=== PATIENT | male | born 1975 | race Caucasian/White ===

== ENCOUNTER 2023-10-23 13:04 | Observation (INO) | payer OTHER, SELFPAY ==
--- NOTE | ~2023-10-23 | CT_ITS ---
CT of the Abdomen and Pelvis: Indication: Left lower quadrant pain Technique: 2.5 mm axial scans were obtained through the abdomen and pelvis following intravenous adm inistration of 100 cc of Omnipaque 350. Dose reduction technique was used on this scan by utilizing a utomated exposure control and iterative reconstruction technique. The dose-length product (DLP) was 9 96.17 mGy-cm. Findings: Scans through the lung bases are unremarkable. The liver, spleen, pancreas, gallbladder, adrenals and kidneys are within normal limits. No evidence of aortic aneurysm. No lymphadenopathy. No bowel obstruction or bowel wall thickening. There is no evidence to suggest acute appendicitis. Images through the pelvis were performed. Urinary bladder unremarkable. Fat-containing left inguinal hernia present. No pelvic mass evident. Prostate gland mildly enlarged. No ascites. Bilateral L5 pars interarticularis defects are present, with 11 mm anterolisthesis of L5 over S1. Impression: Moderate fat-containing left inguinal hernia. Reviewed, dictated and finalized at [facility]. Impression: Moderate fat-containing left inguinal hernia.
[2023-10-23 13:05] VITALS: BP 178/94; PULSE 73; RESP 18; TEMP 36.5; O2SAT 100
--- NOTE | 2023-10-23 13:20 | ED.ABDPAIN ---
HPI - Abdominal Pain General Chief Complaint: Abdominal Pain Stated Complaint: lower abd pain Time Seen by Provider: 10/23/23 13:19 Source: patient Mode of arrival: ambulatory Limitations: no limitations History of Present Illness HPI narrative: Sudden onset left lower quadrant pain, squeezing started 1 hour prior to arrival to the emergency room. Associated with nausea and vomiting once. He denies any fever or chills or radiation of pain or history of abdominal surgery Related Data Allergies Allergy/AdvReac Type Severity Reaction Status Date / Time No Known Allergies Allergy Verified 10/23/23 13:15 Review of Systems Review of Systems: All systems reviewed & are unremarkable except as noted in HPI and below Exam Narrative: General appearance: Well-developed, well-nourished Skin: Normal color Head: Normocephalic, nontraumatic Eyes: Clear conjunctiva ENT: Oropharynx normal, ears normal, nose normal Neck: Supple, nontender Chest and respiratory: Airway patent, no respiratory distress, no accessory muscle use Heart: Regular rate/rhythm Abdomen: Soft, slight tenderness left flank and left lower quadrant, slight swelling at the left lower quadrant, nontender, soft. No guarding or rebound, no organomegaly, quiet bowel sounds Vascular: Normal peripheral pulses, normal capillary refill. Musculoskeletal: Normal range of motion, nontender back Neurologic: Alert and oriented ?3, OFFICE SUPPORT is normal as tested, no gross motor deficit Course Vital Signs Vital signs: Vital Signs Temperature 36.5 C 10/23/23 13:05 Pulse Rate 73 10/23/23 13:05 Respiratory Rate 18 10/23/23 13:05 Blood Pressure 178/94 H 10/23/23 13:05 Pulse Oximetry 100 10/23/23 13:05 Oxygen Delivery Room Air 10/23/23 13:05 Temperature 36.5 C 10/23/23 13:05 Pulse Rate 73 10/23/23 13:05 Respiratory Rate 18 10/23/23 13:05 Blood Pressure 178/94 H 10/23/23 13:05 Pulse Oximetry 100 10/23/23 13:05 Oxygen Delivery Room Air 10/23/23 13:05 MDM - Abdominal Pain MDM Narrative Medical decision making narrative: Patient came with sudden onset of pain at the left lower quadrant Vital signs showed blood pressure of 178/94 Physical examination showed slight tenderness left lower quadrant and left flank area, slight soft bulging left lower quadrant which is nontender Differential diagnosis include kidney stone, urinary tract infection, diverticulitis, constipation, colitis, non strangulated inguinal hernia Blood workup today showed normal WBC, creatinine of 1.9 compared to 1.2 on September 26, 2023 Urinalysis showed no evidence of urinary tract infection CT scan of the abdomen and pelvis with IV contrast showed left inguinal hernia containing fat Because of the elevated creatinine patient will be admitted to the hospitalist for hydration with diagnosis of BENJAMIN Differential Diagnosis Differential diagnosis: Likely other (As above) Medical Records Attestation: I reviewed the patient's medical records. Lab Data Attestation: I reviewed the patient's lab results. 10/23/23 13:22 10/23/23 13:32 Labs: Lab Results 10/23/23 10/23/23 10/23/23 Range/Units 13:22 13:32 14:07 WBC 6.9 (4.5-10.0) K/mm3 RBC 4.93 (4.6-6.20) M/mm3 Hgb 14.9 (14.0-18.0) g/dL Hct 45.0 (42.0-52.0) % MCV 91.3 (80-100) fl MCH 30.2 (26-34) pg MCHC 33.1 (32-36) g/dl RDW 12.6 (11.5-14.5) % Plt Count 245 (150-375) k/mm3 MPV 9.9 (7.4-10.4) fl Immature Gran % (Auto) 0.3 (0-0.5) % Neut % (Auto) 55.9 (45.5-73.1) % Lymph % (Auto) 33.7 (18.3-44.2) % [place] % (Auto) 7.1 (2.6-8.5) % Eos % (Auto) 2.3 (0-4
[2023-10-23 13:30] LABS: Basophils Absolute Auto 0.1 K/mm3 (0.0-0.1); Basophils Percent Auto 0.7 % (0.2-1.2); Eosinophils Absolute Auto 0.2 K/mm3 (0-0.3); Eosinophils Percent Auto 2.3 % (0-4.4); Hemoglobin 14.9 g/dL (14.0-18.0); Immature Granulocyte Absolute 0.02 K/mm3 (0.00-0.031); Immature Granulocyte Percent A 0.3 % (0-0.5); Lymphocytes Absolute Auto 2.32 K/mm3 (0.9-3.2); Lymphocytes Percent Auto 33.7 % (18.3-44.2); Mean Corpuscular HGB Conc 33.1 g/dl (32-36); Mean Corpuscular Hemoglobin 30.2 pg (26-34); Mean Corpuscular Volume 91.3 fl (80-100); Mean Platelet Volume 9.9 fl (7.4-10.4); Monocytes Absolute Auto 0.5 K/mm3 (0.1-0.6); Monocytes Percent Auto 7.1 % (2.6-8.5); Neutrophils Absolute Auto 3.9 K/mm3 (1.3-6.7); Neutrophils Percent Auto 55.9 % (45.5-73.1); Platelet Count Result 245 k/mm3 (150-375); Red Blood Count 4.93 M/mm3 (4.6-6.20); Red Cell Distribution Width 12.6 % (11.5-14.5); White Blood Count 6.9 K/mm3 (4.5-10.0)
[2023-10-23 13:34] LABS: Estimated CRCL calculation 50 ml/min; Estimated Glomerular Filt Rate 38
[2023-10-23 13:41] LABS: Lactic Acid Reflex 1.8 mmol/L (0.7-2.0)
[2023-10-23 13:42] LABS: Alanine Aminotransferase 43 U/L (6-50); Albumin Level 4.9 g/dL (3.5-5.1); Alkaline Phosphatase 61 U/L (38-126); Anion Gap 13 mmol/L (4-12); Aspartate Amino Transferase 35 U/L (17-59); Bilirubin,Total 0.5 mg/dL (0.2-1.3); Blood Urea Nitrogen 18 mg/dL (9-20); Calcium 9.5 mg/dL (8.4-10.2); Carbon Dioxide 26 mmol/L (22-30); Chloride 102 mmol/L (98-107); Estimated CRCL calculation 53 ml/min; Estimated Glomerular Filt Rate 40; Glucose 190 mg/dL (65-110); Lipase 364 U/L (23-300); Potassium 3.8 mmol/L (3.4-5.0); Sodium 141 mmol/L (137-145)
[2023-10-23] MEDS: ONDANSETRON INJ 4 MG/2 ML VIAL IV PUSH (13:43)
[2023-10-23] MEDS: SODIUM CHLORIDE 0.9% IV 1,000 ML 999 ML IV CONT (13:44)
[2023-10-23] MEDS: MORPHINE SULFATE (*CRX) 4 MG/ML INJ IV PUSH (13:44)
[2023-10-23 14:17] LABS: Add Urine Microscopic? YES; Appearance Urine Clear (Clear); Bacteria Urine None Seen /hpf; Bilirubin Urine Negative (Negative); Blood Urine 1+ (Negative); Color Urine Yellow (Yellow); Glucose Urine UA 3+ mg/dL (Negative); Ketones Urine Negative (Negative); Leukocyte Esterase Ur Negative LEU/UL (Negative); Nitrate Urine Negative (Negative); Non Pathogenic Casts 0-2; Protein Urine Negative (Negative); Specific Grav Ur > 1.045 (1.001-1.035); Squamous Epithelial Cell Urine None Seen /hpf (Few); Urobilinogen Urine 0.2 mg/dL (<2.0); WBC Urine 0-5 /hpf (0-3); pH Urine 5.5 (5.0-9.0)
--- NOTE | 2023-10-23 15:12 | PM.IMHP ---
H&P: HPI History of Present Illness Date/Time: 10/23/23 15:12 Chief Complaint: Abdominal Pain Narrative: 48 y/o M presents here with abdominal pain with PMH of DM2, HLD, and HTN. The patient presents here from home for further evaluation of left lower quadrant pain. He reports pain started 1 hour prior to arrival. Patient reports onset of abdominal pain post-BM. He describes the pain as squeezing, nonradiating, constant, aggravated by urination, and no alleviating factors. Patient has had one previous abdominal surgery - hernia (unsure what type) repair at 18 mos. Abdominal pain is accompanied by mild nausea and 2 episode of emesis (one prior to arrival and one post-morphine administration in the ED). Denies associated fever, chills, diarrhea, dysuria, hematuria, or urinary frequency. ED provider reached out to patient's PCP, creatinine was 1.2 on 10/03/2023. Patient also reports recent exchange from [employer] to [employer]. Reports he has not been drinking as much fluid and has been working in the heat over the last few days. Only has occasional ETOH use. Initial VS at presentation: 97.7? F, HR 73, RR 18, 178/94, and 100% on RA. ED workup showed: no leukocytosis, no anemia, creatinine 1.9 and GFR 38 (no previous available for comparison), lipase 364, and UA showed high specific gravity, 3+ glucose, 1+ blood, 3-[address] of the abdomen/pelvis showed moderate fat containing left inguinal hernia. Review of Systems Review of Systems: All systems reviewed & are unremarkable except as noted in HPI and below PMFSH Past Medical History Medical History (Updated 10/23/23 @ 16:41 by Heydi Nielsen APRN) DM2 (diabetes mellitus, type 2) HLD (hyperlipidemia) HTN (hypertension) Surgical History Surgical History (Updated 10/23/23 @ 16:34 by Heydi Nielsen APRN) History of hernia repair @18 mos old Meds Home Medications and Allergies Allergies Allergy/AdvReac Type Severity Reaction Status Date / Time No Known Allergies Allergy Verified 10/23/23 13:15 Vital Signs Vital Signs - 24 hr 10/23/23 13:05 Temperature 97.7 F Pulse Rate 73 Respiratory Rate 18 Blood Pressure 178/94 H Pulse Oximetry 100 Oxygen Delivery Room Air Exam Const: General: comfortable and no acute distress Other: , male, nontoxic appearance HENMT: Face/Nose/Sinus: Normal nares present Mouth: Yes moist mucous membranes Eyes: General: appearance normal, both eyes and all related structures Sclera: sclerae normal Pupils: Equal, round and reactive pupils present EOM: EOMs intact bilaterally Resp: Effort & Inspection: normal respiratory effort Auscultation: clear to auscultation bilaterally Cardio: Rate: regular rate Rhythm: regular rhythm Other: S1-S2 present without murmur, rub, ectopy GI: Other: soft, nondistended, nontender. Slight bulge to left lower quadrant, nontender and soft. Normoactive bowel sounds in all quadrants. Skin: General skin exam: normal color and no rashes or lesions noted Wounds: no wounds Neuro: Speech: normal speech Motor exam (neuro): 5/5 motor strength present throughout Sensory Exam: normal sensation Other: A&O x4 Extrem: General: normal to inspection Psych: Mental Status: mental status grossly normal Affect: normal affect Other: good insight and judgment, pleasant H&P: Results Labs Labs: Short CBC 10/23/23 Range/Units 13:22 WBC 6.9 (4.5-10.0) K/mm3 Hgb 14.9 (14.0-18.0) g/dL Hct 45.0 (42.0-52.0) % Plt Count 245 (150-375) k/mm3 BMP 10/23/23 10/23/23 13:22 13:32 Sodium 141 Potassium 3.8 Chloride 102 Carbon Dioxide 26 BUN 18 Creatinine 1.80 H 1.90 H Glucose 190 H Calcium 9.5 Liver Function 10/23/23 Range/Units 13:22 Total Bilirubin 0.5 (0.2-1.3) mg/dL AST 35 (17-59) U/L ALT 43 (6-50) U/L Alkaline Phosphatase 61 (38-126) U/L Albumin 4.9 (3.5-5.1) g/dL Urin
[2023-10-23 16:03] VITALS: BP 155/90; PULSE 93; RESP 16; O2SAT 97
[2023-10-23 16:51] VITALS: BP 149/89; PULSE 86; RESP 14; O2SAT 98
--- NOTE | 2023-10-23 17:23 | ADMGEN ---
This patient, Kade Lopez, was admitted to Medical Room 249-01. Patient/family oriented to hospital policies and general routines including ID bracelet, bed and alarms, visiting hours, pain management, procedures, bathroom and other care routines, personal items, smoking policy, room service/diet, and visiting hours. Information on how to activate the Rapid Response Team has been discussed. Patient/Family are encouraged to report perceived risks to care and to ask questions if they do not understand what they are told or what they should do.
[2023-10-23 17:24] LABS: Glucose Point of Care 158 mg/dl (65-105)
[2023-10-23] MEDS: SODIUM CHLORIDE 0.9% IV 1,000 ML 200 ML IV CONT ×2 (17:40→23:10)
[2023-10-23 17:46] VITALS: BMI 31.5
[2023-10-23] MEDS: ACETAMINOPHEN 325 MG TABLET 650 MG PO ×2 (19:06→23:09)
[2023-10-23 19:56] VITALS: BP 151/93; PULSE 74; RESP 22; TEMP 37.1; O2SAT 99
[2023-10-23 20:13] LABS: Glucose Point of Care 146 mg/dl (65-105)
[2023-10-24 05:36] LABS: Basophils Percent Auto 0.3 % (0.2-1.2); Eosinophils Absolute Auto 0.1 K/mm3 (0-0.3); Eosinophils Percent Auto 2.2 % (0-4.4); Hemoglobin 13.7 g/dL (14.0-18.0); Immature Granulocyte Absolute 0.01 K/mm3 (0.00-0.031); Immature Granulocyte Percent A 0.2 % (0-0.5); Lymphocytes Percent Auto 32.5 % (18.3-44.2); Mean Corpuscular HGB Conc 32.6 g/dl (32-36); Mean Corpuscular Hemoglobin 29.9 pg (26-34); Mean Corpuscular Volume 91.7 fl (80-100); Mean Platelet Volume 9.5 fl (7.4-10.4); Monocytes Absolute Auto 0.5 K/mm3 (0.1-0.6); Monocytes Percent Auto 8.3 % (2.6-8.5); Neutrophils Absolute Auto 3.7 K/mm3 (1.3-6.7); Neutrophils Percent Auto 56.5 % (45.5-73.1); Platelet Count Result 199 k/mm3 (150-375); Red Blood Count 4.58 M/mm3 (4.6-6.20); Red Cell Distribution Width 12.6 % (11.5-14.5); White Blood Count 6.5 K/mm3 (4.5-10.0)
[2023-10-24 05:47] LABS: Alanine Aminotransferase 36 U/L (6-50); Alkaline Phosphatase 55 U/L (38-126); Anion Gap 9 mmol/L (4-12); Aspartate Amino Transferase 27 U/L (17-59); Bilirubin,Total 0.4 mg/dL (0.2-1.3); Blood Urea Nitrogen 19 mg/dL (9-20); Calcium 8.6 mg/dL (8.4-10.2); Carbon Dioxide 23 mmol/L (22-30); Chloride 108 mmol/L (98-107); Estimated CRCL calculation 92 ml/min; Estimated Glomerular Filt Rate > 60; Glucose 135 mg/dL (65-110); Lipase 307 U/L (23-300); Potassium 4.1 mmol/L (3.4-5.0); Sodium 140 mmol/L (137-145)
[2023-10-24 06:00] VITALS: BP 122/83; PULSE 105; RESP 20; TEMP 36.7; O2SAT 98
[2023-10-24 07:51] LABS: Glucose Point of Care 152 mg/dl (65-105)
[2023-10-24] MEDS: ATORVASTATIN 20 MG TABLET PO (08:49)
[2023-10-24] MEDS: lisinopriL 10 MG TABLET PO (08:50)
[2023-10-24] MEDS: SODIUM CHLORIDE 0.9% IV 1,000 ML 200 ML IV CONT (09:42)
--- NOTE | 2023-10-24 11:27 | PM.DS ---
DS: Admitting Diagnosis Discharge Date 10/24/23 Admitting Diagnosis LLQ Abdominal pain DS: Discharge Diagnosis Discharge Diagnosis (1) Left lower quadrant pain: Code(s): R10.32 - Left lower quadrant pain Status: Acute Assessment and Plan: - CT abd/pelvis: Moderate fat-containing left inguinal hernia. Patient educated on CT findings, plans to follow-up on finding outpatient. - Symptoms likely related to acute pancreatitis with elevated Lipase. - Symptoms currently resolved and patient able to tolerate soft diet with no symptoms. - Patient stable for discharge. (2) BENJAMIN (acute kidney injury): Code(s): N17.9 - Acute kidney failure, unspecified Status: Acute Assessment and Plan: - creatinine 1.9 and GFR 38, per PCP office patient's last creatinine was 1.2 on 10/03/2023. - Likely pre-renal secondary to poor PO intake from abdominal discomfort and dehydration from heat exposure. - Resolved with IVF hydration. Renal panel wnl. (3) Acute pancreatitis: Code(s): K85.90 - Acute pancreatitis without necrosis or infection, unspecified Status: Acute Assessment and Plan: - Lipase levels elevated on presentation. - Slightly trended down closer to normal levels. - Symptoms currently resolved. - Tolerating low-fat diet well without any symptoms. - No further w/u needed. (4) DM2 (diabetes mellitus, type 2): Qualifiers: Diabetes mellitus [facility] insulin use: without [facility] use Diabetes mellitus complication status: without complication Qualified Code(s): E11.9 - Type 2 diabetes mellitus without complications Code(s): E11.9 - Type 2 diabetes mellitus without complications Status: Acute Assessment and Plan: - A1c 7. - Blood-glucose levels well controlled inpatient. (5) HTN (hypertension): Qualifiers: Hypertension type: primary hypertension Qualified Code(s): I10 - Essential (primary) hypertension Code(s): I10 - Essential (primary) hypertension Status: Acute Assessment and Plan: - BP well controlled on Lisinopril inpatient. Plan Diet: heart healthy GI Prophylaxis: not currently indicated DVT Prophylaxis: SCDs Lines: peripheral Code Status: full code DS: Summary Hospital Course Reason for hospitalization: LLQ Abdominal Pain Hospital Course: Patient presented from home for further evaluation of left lower quadrant pain. He reports pain started 1 hour prior to arrival. Patient reports onset of abdominal pain post-BM. He described the pain as squeezing, nonradiating, constant, aggravated by urination, and no alleviating factors. Abdominal pain is accompanied by mild nausea and 2 episode of emesis. Patient also reported not drinking as much fluid and has been working in the heat over the last few days. Only has occasional ETOH use. Work up labs were consistent with posssible pancreatitis with elevated Lipase levels and suspected BENJAMIN with patient's abnormal renal panel, compared from his recent lab work-up. CT Abd/Pelvis was only significant for moderate fat-containing left inguinal hernia. Patient was admitted on observation and treated with pain medications and IVF hydration. He reports resolution of his symptoms, including with meals. His BENJAMIN resolved as well, with his BP staying wnl. Patient is medically stable for discharge with no acute distress noted or reported prior to discharge. Status at Discharge Functional status at discharge: independent ambulation Overall status at discharge: patient is back to baseline Time Spent with Patient Time attestation: Total time spent providing and/or coordinating discharge services: Time spent: Greater than 30 minutes Exam Const: General: comfortable and no acute distress Other: , male, well appearing. HENMT: Face/Nose/Sinus: Normal nares present Mouth: Yes moist mucous membranes Eyes: General: appearance normal, both eyes and a
[2023-10-24 12:00] LABS: Glucose Point of Care 132 mg/dl (65-105)
== END 2023-10-24 12:55 | disposition home or self-care (01) ==
LOC: ANHED 15:18 → ANH2MED 16:53
PROVIDERS: Student in an Organized Health Care Education/Training Program; Admitting Provider General Practice; Emergency Provider Emergency Medicine; PCP Family Medicine; Visit Provider Internal Medicine
DX: K85.90 Acute pancreatitis without necrosis or infection, unspecified (principal); N17.9 Acute kidney failure, unspecified; K40.90 Unilateral inguinal hernia, without obstruction or gangrene, not specified as recurrent; E11.9 Type 2 diabetes mellitus without complications; E78.5 Hyperlipidemia, unspecified; I10 Essential (primary) hypertension; Z79.84 Long term (current) use of oral hypoglycemic drugs
CPT/HCPCS: 36415; 74177; 80053; 81001; 82948; 83036; 83605; 83690; 85025; 96360; 96361; 96374; 96375; 99285; A9270; G0378; J2270; J2405; J7030; Q9967